=== PATIENT | female | born 1945 | race Two or more races ===

== ENCOUNTER 2018-06-03 20:51 | Emergency (ER) | payer MEDICARE, OTHER ==
[~2018-06-03] VITALS: Ht 152.4 cm; Wt 59.0 kg
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
--- NOTE | 2018-06-03 21:15 | NUR ---
PT REFUSING IV, BLOOD WORK, AND CT WITH CONTRAST. PT STATES SHE JUST WANTS PAIN MEDICATION AND TO BE SENT HOME.
--- NOTE | 2018-06-03 21:15 | NUR ---
Dr. Gray make aware, spoke with pt. Pt aware of risks.
[2018-06-03] MEDS ORDERED: KETOROLAC TROMETHAMINE INJ 60 MG/2 ML VIAL IM ONE (21:30)
[2018-06-03] MEDS ORDERED: ONDANSETRON 4 MG TAB.RAPDIS PO ONE (21:30)
[2018-06-03] MEDS ORDERED: IV NS 0.9% 1,000 ML BAG IV ONE (21:30)
[2018-06-03] MEDS ORDERED: KETOROLAC TROMETHAMINE INJ 30 MG/ML VIAL IV ONE (21:30)
[2018-06-03] MEDS ORDERED: ONDANSETRON HCL/PF 4 MG/2 ML VIAL IVP ONE (21:30)
[2018-06-03] MEDS ORDERED: KETOROLAC TROMETHAMINE INJ 30 MG/ML VIAL ONE (21:48)
[2018-06-03] MEDS ORDERED: ONDANSETRON 4 MG TAB.RAPDIS ONE (21:48)
[2018-06-03] MEDS ORDERED: ACETAMINOPHEN 325 MG TABLET PO ONE (22:00)
--- NOTE | 2018-06-03 22:10 | NUR ---
PT AGREES TO LABS, CT, AND XRAY.
--- NOTE | 2018-06-03 22:10 | NUR ---
Dr. Chavez at bedside.
[2018-06-03] MEDS ORDERED: ACETAMINOPHEN 325 MG TABLET ONE (22:12)
--- NOTE | 2018-06-03 22:16 | NUR ---
XRAY AT BEDSIDE.
[2018-06-03 22:31] LABS: BASOPHILS # (AUTO) 0.1 /CMM (0.0-0.2); BASOPHILS % (AUTO) 0.8 % (0.0-2.0); EOSINOPHILS % (AUTO) 3.2 % (0.0-6.0); HEMATOCRIT 40 % (33-45); HEMOGLOBIN 13.3 g/dL (11.5-14.8); LYMPHOCYTES # (AUTO) 1.2 /CMM (0.8-4.8); MEAN CORPUSCULAR HGB CONC 33 g/dl (31.0-36.0); MEAN CORPUSCULAR VOLUME 91 fL (82-100); MONOCYTES # (AUTO) 0.5 /CMM (0.1-1.30); MONOCYTES % (AUTO) 6.8 % (2.0-12.0); NEUTROPHILS # (AUTO) 4.8 /CMM (1.8-8.9); NEUTROPHILS % (AUTO) 71.2 % (43.0-81.0); PLATELET COUNT (AUTO) 195 /CMM (150-450); RED BLOOD CELL COUNT(AUTO) 4.37 MIL/uL (4.0-5.2); WHITE BLOOD COUNT (AUTO) 6.7 K/uL (4.3-11.0)
--- NOTE | 2018-06-03 22:33 | NUR ---
EKG AT BEDSIDE.
[2018-06-03 22:43] LABS: CALCIUM, SERUM 9.4 mg/dL (8.5-10.1); CREATININE 0.8 mg/dL (0.6-1.3)
[2018-06-03 22:44] LABS: POTASSIUM 3.7 mmol/L (3.5-5.1)
[2018-06-03] MEDS ORDERED: CT SWABBABLE VALVE TRANS SET 1 EA INFUS.SET MC ONE (22:58)
[2018-06-03] MEDS ORDERED: IOHEXOL-300 100 ML VIAL IV ONE (22:58)
[2018-06-03] MEDS ORDERED: IV NS 0.9% 250 ML IV ONE (22:58)
[2018-06-03] MEDS ORDERED: IOHEXOL-350 100 ML VIAL IV ONE (22:58)
--- NOTE | 2018-06-03 23:15 | NUR ---
PT TAKEN TO CT.
--- NOTE | 2018-06-04 00:55 | NUR ---
PT IN BED RESTING COMFORTABLY, WILL CONTINUE TO MONITOR.
--- NOTE | 2018-06-04 02:13 | NUR ---
Patient discharged to home in stable condition. Written and verbal after care instructions given. Patient verbalizes understanding of instruction. IV removed. Catheter intact and site benign. Pressure and 4x4 applied to site. No bleeding noted. Pt ambulatory with steady gait.
[2018-06-04 02:14] VITALS: BP 129/77
== END 2018-06-04 02:15 | disposition home or self-care (01) ==
LOC: ER 20:53
DX: S16.1XXA Strain of muscle, fascia and tendon at neck level, initial encounter (principal); V49.49XA Driver injured in collision with other motor vehicles in traffic accident, initial encounter; Y93.89 Activity, other specified; Y92.410 Unspecified street and highway as the place of occurrence of the external cause; Y99.8 Other external cause status
CPT/HCPCS: 36415; 70450; 71045; 71275; 72125; 72128; 80048; 84484; 85025; 85730; 93005; 93880; 99284; A4606; J7050; Q9967 ×2; J1885; Q0162